=== PATIENT | female | born 1940 | race Asian ===

== ENCOUNTER 2018-08-10 14:41 | Observation (INO) | payer OTHER, MEDICARE ==
--- NOTE | 2018-08-10 14:56 | PDOC ---
History of Present Illness - General Chief Complaint: Allergic Reaction Stated Complaint: Allergic Reaction Time Seen by Provider: 08/10/18 14:50 - History of Present Illness Initial Comments: 08/10/18 14:52 Ms. Menchaca is a 77 yo female w/ pmh of [facility] who presents from outpatient center where she received colonoscopy earlier today (routine) for evaluation of allergic reaction. Per EMS patient received only propofol and lidocaine today. Patient has reportedly had both before without difficulty. Patient was noted to have hives upon coming out of sedation and was given 50mg benadryl and 4mg decadron x2 (total 8mg). Patient denies any difficulty breathing at this time and reports her hives/itching symptoms have decreased after getting the medication. The patient denies chest pain, shortness of breath, headache and dizziness. Denies fever, chills, nausea, vomit, diarrhea and constipation. Denies dysuria, frequency, urgency and hematuria. Past History - Past Medical History Allergies/Adverse Reactions: Allergies Allergy/AdvReac Type Severity Reaction Status Date / Time nut - unspecified Allergy Verified 08/10/18 16:11 Nuts Allergy Itch Uncoded 01/03/15 14:34 Home Medications: Ambulatory Orders Milk Thistle Fruit Extract [Milk Thistle] 140 mg PO DAILY capsule 08/28/16 Multivitamin [Daily Vitamin Formula] 1 each PO DAILY tablet 08/28/16 Glucosamine/D3/Boswellia Saundra [Osteo Bi-Flex Tablet] 1 each PO DAILY 08/10/18 Prednisone 30 mg PO DAILY #9 tablet 08/10/18 Review of Systems - Review of Systems Comments:: 08/10/18 14:56 GENERAL/CONSTITUTIONAL: No fever or chills. No weakness. HEAD, EYES, EARS, NOSE AND THROAT: No change in vision. No ear pain or discharge. No sore throat. CARDIOVASCULAR: No chest pain or shortness of breath RESPIRATORY: No cough, wheezing, or hemoptysis. GASTROINTESTINAL: No nausea, vomiting, diarrhea or constipation. GENITOURINARY: No dysuria, frequency, or change in urination. MUSCULOSKELETAL: No joint or muscle swelling or pain. No neck or back pain. SKIN: No rash NEUROLOGIC: No headache, vertigo, loss of consciousness, or change in strength/ sensation. ENDOCRINE: No increased thirst. No abnormal weight change HEMATOLOGIC/LYMPHATIC: No anemia, easy bleeding, or history of blood clots. ALLERGIC/IMMUNOLOGIC: +Hives as described. *Physical Exam - Physical Exam Comments: 08/10/18 14:56 GENERAL: Awake, alert, and fully oriented, in no acute distress HEAD: No signs of trauma, normocephalic, atraumatic EYES: PERRLA, EOMI, sclera anicteric, conjunctiva clear ENT: Auricles normal inspection, hearing grossly normal, nares patent, oropharynx clear without exudates. Moist mucosa NECK: Normal ROM, supple, no lymphadenopathy, JVD, or masses LUNGS: No distress, speaks full sentences, clear to auscultation bilaterally HEART: Regular rate and rhythm, normal S1 and S2, no murmurs, rubs or gallops, peripheral pulses normal and equal bilaterally. ABDOMEN: Soft, nontender, normoactive bowel sounds. No guarding, no rebound. No masses EXTREMITIES: Normal inspection, Normal range of motion, no edema. No clubbing or cyanosis. NEUROLOGICAL: Cranial nerves II through XII grossly intact. Normal speech, normal gait, no focal sensorimotor deficits SKIN: +Patient noted to have skin changes c/w hives diffusely over arms, trunk, and face. Medical Decision Making - Medical Decision Making 08/10/18 15:13 Ms. Menchaca is a 77 yo female w/ pmh as described who presents for evaluation of allergic reaction. Patient has previously received steroids and benadryl; will give H2 suze for further symptomatic relief and observe for changes. 08/10/18 18:36 Patient tolerating PO w/out difficulty with significant reduction in allergic symptoms. Hives markedly decreased and patient lungs clear w/ no wheezing or other symptoms. Prednisone for 3 days sent to patient's pharmacy. 08/10/18 18:43 Discussed patient with performing GI doctor who requested overnight observation. Inpatient team contacted. 08/10/18 18:49 Inpatient team requested laboratory evaluation with EKG and CXR. Orders placed. Inpatient team will be re-consulted following further evaluation. Patient signed out to Dr. Barth for further care. *DC/Admit/Observation/Transfer Diagnosis at time of Disposition: Allergic reaction Qualifiers: Encounter type: initial encounter Qualified Code(s): T78.40XA - Allergy, unspecified, initial encounter - Discharge Dispostion Decision to Admit order: Yes - Prescriptions Prescriptions: Prednisone 30 mg PO DAILY #9 tablet - Referrals Referrals: Lynne Chowdary MD [Staff Physician] - - Patient Instructions - Post Discharge Activity
[2018-08-10 14:58] VITALS: BMI 26.2
[2018-08-10] MEDS ORDERED: FAMOTIDINE 20 MG/50 ML IVPB 20 MG/50 ML MG IVPB ONE (15:03)
[2018-08-10] MEDS ORDERED: RANITIDINE HCL 150 MG/10 ML UNIT-DOSE PO ONE (15:03)
[2018-08-10] MEDS ORDERED: RANITIDINE HCL 150 MG TABLET (FP) ONE (15:32)
--- NOTE | 2018-08-10 15:32 | PDOC ---
Documentation entered by Praveena Mcduffie SCRIBE, acting as scribe for Carter Toro MD. Carter Toro MD: This documentation has been prepared by the scribe, Praveena Mcduffie SCRIBE, under my direction and personally reviewed by me in its entirety. I confirm that the documentation accurately reflects all work, treatment, procedures, and medical decision making performed by me. Attending Attestation - Resident Resident Name: SachingaurangGarrett - ED Attending Attestation I have performed the following: I have examined & evaluated the patient, The case was reviewed & discussed with the resident, I agree w/resident's findings & plan, Exceptions are as noted - HPI HPI: 08/10/18 15:55 The patient is a 77-year-old female, with a past medical history of pre-DM, who presents to the ED s/p acute allergic reaction after receiving propofol during a routine colonoscopy. Patient developed diffuse hives and received Benadryl and Decadron prior to arrival to the ED. Denies any shortness of breath or throat swelling. - Physicial Exam PE: 08/10/18 15:29 Patient is awake and alert, well-nourished, in no distress Normocephalic and atraumatic PERRLA, EOMI Uvula is midline and is nonedematous; No stridor mmm cta rrr + Extensive blanching well-demarcated, elevated rash to face, neck, chest, back , abdomen pelvis, upper and lower extremities consistent with urticaria - Medical Decision Making 08/10/18 15:31 Patient is a 77-year-old female who presents to the ER with signs and symptoms of an acute ALLERGIC reaction, likely due to administration of propofol. Patient received Benadryl and Decadron prior to arrival. In the ER, patient displays extensive urticaria but no evidence of airway compromise or respiratory symptoms. We'll continue to observe. Will consider epinephrine if angioedema or stridor develop. We will administer H2 blockers. Will observe.
[2018-08-10] MEDS ORDERED: methylPREDNISolone NA SUCC 40 MG/1 ML VIAL IVPB ONE (18:29)
--- NOTE | 2018-08-10 18:35 | PN ---
Progress Note (short form) - Note Progress Note: patient sent from endoscopy center after developing generalized rash contiue to have itching, rash persistent PE no SOB, no perorbital edema, no throat congestion Lungs clear Abd: normal A> drug allergy R> solumedrol 69mg 1 dose Benadryl observe for 24 hours, patient leaves by herself
[2018-08-10] MEDS ORDERED: methylPREDNISolone NA SUCC 40 MG/1 ML VIAL ONE (18:36)
--- NOTE | 2018-08-10 20:11 | PN ---
Teaching Attending Note Name of Resident: Ania Herrera ATTENDING PHYSICIAN STATEMENT I saw and evaluated the patient. I reviewed the resident's note and discussed the case with the resident. I agree with the resident's findings and plan as documented. SUBJECTIVE: Seen and examined; please refer to resident note for further historical information. Briefly, this is a 77 y/o female presenting to the ER with suspected allergic rxn to propofol after getting it administered during routine colonoscopy; Dr. Pace's note reviewed. She has gotten IV steroids and Benadryl. No s/s angioedema, protecting airway, etc. No history of intubations from anaphylaxis, etc. She has had waxing and waning dizziness for years and never had an explanation for this; the symptom flared with the allergic sx but she didn't have any syncope, rotational movement and EKG without delfino arrhythmia. No issues reported on telemetry from the ER. She sees ENT and they wanted her to get MRI per the patient; records not available. She takes traditional [place] medicine. She used to see an electronic coils supervisor for concerns of multiple allergies but tells me that she was discharged from the practice as there was nothing that could be offered. 10 sys ROS done and negative aside from HPI PMH, PSH, FH, SH reviewed Home Medications Medication Instructions Recorded Milk Thistle Fruit Extract [Milk 140 mg PO DAILY capsule 08/28/16 Thistle] Multivitamin [Daily Vitamin 1 each PO DAILY tablet 08/28/16 Formula] Glucosamine/D3/Boswellia Saundra 1 each PO DAILY 08/10/18 [Osteo Bi-Flex Tablet] Prednisone 30 mg PO DAILY #9 tablet 08/10/18 OBJECTIVE: VS, labs, imaging reviewed NAD, AAO, resting comfortably in bed NC AT EOMI PERRLA; no throat swelling, angioedema, etc. RRR s1/2 no mgr Lungs CTAB, w/ sym exp CN2-12 wnl, no fnd Normal mood, appropriate behavior CXR reviewed EKG reviewed ASSESSMENT AND PLAN: Patient presents with allergic rxn post propofol injection at colonoscopy; she is protecting her airway and not in anaphylaxis, etc. 1) Allergic rxn -Monitor airway overnight; absolutely no involvement thus far. Update allergy information (suspected propofol as agent). Based on description appears to be a type I hyperstensitivity reaction given prior exposures. Can check tryptase levels if concern for anaphylaxis but sx have mostly resolved by this juncture. -No s/s SJS, TEN, etc. -Per Up[employer]Date even if this was fullminant anaphylaxis, provided she is improving we will give another dose of methylpred IV tomorrow and then this may be stopped without a taper. We also will give another day of BID 50 benadryl and BID famotidine. 2) Chronic Dizziness -Likely flared by autonomic changes 2/2 #1 but given the chronicity and her use of TCM herbs, etc. it could be multifactoral. She has negative orthostatic VS in the ER. EKG non-revealing. Can refer for OP echo and consider 24 hour monitoring. Doesn't fit stereotyped vertigo; she does follow with ENT who she tells us wanted an MRI; would be helpful to discuss the rational with them. Full Code
[2018-08-10 20:18] LABS: HEMATOCRIT 43.4 % (32.4-45.2); HEMOGLOBIN 14.2 GM/dL (10.7-15.3); LYMPH % 8.3 % (8-40); MCH 30.3 pg (25.7-33.7); MCHC 32.8 g/dl (32.0-36.0); MEAN CELL VOLUME 92.4 fl (80-96); MEAN PLT VOLUME 7.6 fl (7.5-11.1); MONO % 1.4 % (3.8-10.2); NEUT % 90.3 % (42.8-82.8); PLATELET COUNT 223 K/MM3 (134-434); WHITE BLOOD COUNT 6.2 K/mm3 (4.0-10.0)
[2018-08-10 20:44] LABS: ALBUMIN 3.6 g/dl (3.4-5.0); BILIRUBIN,TOTAL 0.7 mg/dL (0.2-1); BLOOD UREA NITROGEN 15.1 mg/dL (7-18); CALCIUM 8.7 mg/dL (8.5-10.1); CREATININE 0.8 mg/dL (0.55-1.3); POTASSIUM 4.3 mmol/L (3.5-5.1); TOT PROT 7.3 g/dl (6.4-8.2)
--- NOTE | 2018-08-11 01:55 | HP ---
CHIEF COMPLAINT: allergic reaction PCP: Dr. Osborne HISTORY OF PRESENT ILLNESS: Pt. is a 77 y.o. F w/ PMHx. of NIDDM and HLD presents at the request of Dr. Pace after having a allergic reaction during a routine colonoscopy. Pt. after completion of colonoscopy was found to have a small erythematous pruritic "dot" that continued to spread onto all aspects of her body. Pt. endorses dizziness that started at this time especially when sitting up or standing. Pt. denies and shortness of breath, difficulty swallowing or chest pain. Pt. denies nausea or vomiting. Pt. states that she had not eaten food for the last 48 hours prior to having the colonoscopy. Pt. states that the last time she felt dizzy was on May 30, she was worked up by a print controller, heating and ventilation engineer and leather lacer without any acute findings. Pt. states that she has undergone procedures with Propofol 5 times in the past without any issues. Pt. states that this type of reaction has happened twice in the past when receiving her routine "allergy injections" by her PCP ( Pt. states that she started out with Bi weekly injection and transitioned to monthly injections for 30 years finally ceasing last year). These events 30 years ago and 5 years ago. During the event 5 years ago she endorses shortness of breath in addition to the dizziness and itchiness. Pt. endorses allergies to brazil nuts, cashews, almonds and pollen. Pt. states she drank almond milk during her trip to [facility] more than 2 days ago. Pt. states she takes her Metformin once a month instead of twice a day as prescribed. Pt. endorses using many alternative Brazilian medications including red yeast rice. ER course was notable for: (1)EKG, CXR, labs, EKG, famotidine, zantac (2) Solumedrol 60mg, telemetry (3) Recent Travel: Traveled back from [facility] on July 31 PAST MEDICAL HISTORY: Pre-DM, HLD, Dry Mouth PAST SURGICAL HISTORY: Hysterectomy (2007), [facility]Y Social History: Smoking: Denies, never Alcohol: 1/2 glass of wine per day Drugs: Denies Family History: Brother and Sister both of renal failure 2/2 DM @ ~60 Allergies nut - unspecified Allergy (Verified 08/10/18 16:11) Nuts Allergy (Uncoded 01/03/15 14:34) Itch HOME MEDICATIONS: Home Medications Medication Instructions Recorded Milk Thistle Fruit Extract [Milk 140 mg PO DAILY capsule 08/28/16 Thistle] Multivitamin [Daily Vitamin 1 each PO DAILY tablet 08/28/16 Formula] Glucosamine/D3/Boswellia Saundra 1 each PO DAILY 08/10/18 [Osteo Bi-Flex Tablet] Prednisone 30 mg PO DAILY #9 tablet 08/10/18 REVIEW OF SYSTEMS As above PHYSICAL EXAMINATION Vital Signs - 24 hr 08/10/18 08/10/18 08/10/18 14:48 18:00 19:17 Temperature 98.5 F Pulse Rate 89 Pulse Rate [ 72 Both Radial] Respiratory 18 18 Rate Blood Pressure 148/79 Blood Pressure 115/69 [Right Arm] O2 Sat by Pulse 100 97 97 Oximetry (%) 08/10/18 08/11/18 23:17 00:58 Temperature 97.4 F L Pulse Rate Pulse Rate [ 68 Both Radial] Respiratory 20 Rate Blood Pressure Blood Pressure 119/64 [Right Arm] O2 Sat by Pulse 98 97 Oximetry (%) GENERAL: Awake, alert, and fully oriented, in no acute distress. HEAD: Normal with no signs of trauma. EYES: Pupils equal, round and reactive to light, extraocular movements intact, sclera anicteric, conjunctiva clear. EARS, NOSE, THROAT: Ears normal, nares patent, oropharynx clear without exudates. Moist mucous membranes. NECK: Normal range of motion, supple without lymphadenopathy, JVD, or masses. LUNGS: Breath sounds equal, clear to auscultation bilaterally. No wheezes, and no crackles. No accessory muscle use. HEART: Regular rate and rhythm, normal S1 and S2 without murmur ABDOMEN: Soft, nontender, not distended, normoactive bowel sounds, no guarding, no rebound, no masses. MUSCULOSKELETAL: Normal range of motion at all joints. No bony deformities or tenderness. No CVA tenderness. UPPER EXTREMITIES: warm, well-perfused. No cyanosis. No clubbing. No peripheral edema. LOWER EXTREMITIES: 2+ dorsal pedal pulses, warm, well-perfused. No calf tenderness. No peripheral edema. NEUROLOGICAL: Normal speech. No nystagmus on [place] but unable to track finger PSYCHIATRIC: Cooperative. Good eye contact. Appropriate mood and affect. SKIN: Warm, dry, normal turgor, no rashes or lesions noted, normal capillary refill. Laboratory Results - last 24 hr 08/10/18 08/10/18 19:05 19:05 WBC 6.2 RBC 4.70 Hgb 14.2 Hct 43.4 MCV 92.4 MCH 30.3 MCHC 32.8 RDW 13.0 Plt Count 223 MPV 7.6 Absolute Neuts (auto) 5.6 Neutrophils % 90.3 H Lymphocytes % 8.3 Monocytes % 1.4 L Eosinophils % 0.0 Basophils % 0.0 Nucleated RBC % 0 Sodium 136 Potassium 4.3 Chloride 102 Carbon Dioxide 22 Anion Gap 11 BUN 15.1 Creatinine 0.8 Est GFR (CKD-EPI)AfAm 83.59 Est GFR (CKD-EPI)NonAf 72.12 Random Glucose 245 H Calcium 8.7 Total Bilirubin 0.7 AST 20 ALT 26 Alkaline Phosphatase 79 Total Protein 7.3 Albumin 3.6 ASSESSMENT/PLAN: Pt. is a 77 y.o. F w/ PMHx. of NIDDM and HLD presents at the request of Dr. Pace after having a allergic reaction during a routine colonoscopy. #Type 1 Hypersensitivity Reaction Given Benadryl 50mg IVP, Famotidine and Zantac Given Solumedrol 60mg c/w Solumedrol 60mg for 1 day c/w Benadryl 50mg BID for 1 more day c/w Famotidine BID for 1 more day would consider discharging with Epipen given Pt.s history of shortness of breath during one reaction and extensive work-up for allergies in the past. CXR: No acute pathology #Dizziness-intermittent and chronic Likely due to medications received in addition to volume depletion, allergic reaction and unknown traditional pashto medication ingestion f/u Head CT---> Pt. refused, states too much radiation Pt. requesting outpatient MRI referral Left atrial enlargement noted on EKG f/u Echo to rule out cardiac etiology for dizziness, may be done as outpatient No reports of adverse events on telemetry by ED Orthostatic VS negative #NIDDM Pt. non-compliant with home medications ( Metformin 500mg BID), Pt. reports using once per month. Hold oral medications BGM ACHS ISS ACHS #HLD Pt. reports using traditional Brazilian herbal medicine including red yeast rice #FEN no IVF, encorage PO intake monitor electrolytes and replete as needed Diabetic Diet #DVT Ppx. TEDs Visit type - Emergency Visit Emergency Visit: Yes ED Registration Date: 08/10/18 Care time: The patient presented to the Emergency Department on the above date and was hospitalized for further evaluation of their emergent condition. - New Patient This patient is new to me today: Yes Date on this admission: 08/10/18 - Critical Care Critical Care patient: No
[2018-08-11] MEDS ORDERED: INSULIN SLIDING SCALE (NOVOLOG) 1 VIAL SQ SCH (07:00)
[2018-08-11 09:52] VITALS: BP 127/66; PULSE 71; TEMP 97.7
[2018-08-11] MEDS ORDERED: diphenhydrAMINE HCL 25 MG CAPSULE (FP) PO SCH ×2 (10:00)
[2018-08-11] MEDS ORDERED: methylPREDNISolone NA SUCC 40 MG/1 ML VIAL IVPUSH ONE (10:00)
[2018-08-11] MEDS ORDERED: predniSONE 20 MG TABLET (UD) PO SCH (10:00)
[2018-08-11] MEDS ORDERED: FAMOTIDINE 20 MG/50 ML IVPB 20 MG/50 ML MG IVPB SCH (10:00)
[2018-08-11] MEDS ORDERED: HYDROCORTISONE SOD SUCCINATE 2 ML ONE (10:28)
[2018-08-11] MEDS ORDERED: FAMOTIDINE 20 MG/50 ML IVPB 20 MG/50 ML MG IVPB ONE (10:28)
--- NOTE | 2018-08-11 11:09 | DS ---
Physical Exam: SUBJECTIVE: Patient seen and examined at bedside. No acute events overnight. OBJECTIVE: Vital Signs Period Temp Pulse Resp BP Sys/Yu Pulse Ox Last 24 Hr 97.4 F-98.5 F 63-89 18-20 110-148/63-79 97-100 PHYSICAL EXAM GENERAL: AAOx3. NAD. Resting comfortably. HEENT: AT/NC. MMM. NECK: Trachea midline, full range of motion, supple. LUNGS: Breath sounds equal, clear to auscultation bilaterally, no wheezes, no crackles, no accessory muscle use. HEART: Regular rate and rhythm, S1, S2 without murmur, rub or gallop. ABDOMEN: Soft, nontender, nondistended, normoactive bowel sounds, no guarding, no rebound, no hepatosplenomegaly, no masses. EXTREMITIES: 2+ pulses, warm, well-perfused, no edema. NEUROLOGICAL: Cranial nerves II through XII grossly intact. Normal speech. PSYCH: Normal mood, normal affect. SKIN: Warm, dry, normal turgor, no rashes or lesions noted. LABS Laboratory Results - last 24 hr 08/10/18 08/10/18 08/11/18 19:05 19:05 06:19 WBC 6.2 RBC 4.70 Hgb 14.2 Hct 43.4 MCV 92.4 MCH 30.3 MCHC 32.8 RDW 13.0 Plt Count 223 MPV 7.6 Absolute Neuts (auto) 5.6 Neutrophils % 90.3 H Lymphocytes % 8.3 Monocytes % 1.4 L Eosinophils % 0.0 Basophils % 0.0 Nucleated RBC % 0 Sodium 136 Potassium 4.3 Chloride 102 Carbon Dioxide 22 Anion Gap 11 BUN 15.1 Creatinine 0.8 Est GFR (CKD-EPI)AfAm 83.59 Est GFR (CKD-EPI)NonAf 72.12 POC Glucometer 174 Random Glucose 245 H Calcium 8.7 Total Bilirubin 0.7 AST 20 ALT 26 Alkaline Phosphatase 79 Total Protein 7.3 Albumin 3.6 HOSPITAL COURSE: Date of Admission:08/10/18 77F w/ pmhx of NIDDM and HLD presented at the request of Dr. Pace after having an allergic reaction during a routine colonoscopy. Upon initial presentation, pt no longer appeared to have a visible rash. In the ED, pt was given IV steroids, Benadryl and IV Pepcid. Head CT was ordered, but pt refused. CXR was neg. Throughout her hospital stay, rash symptoms resolved however mild itchiness persisted. Additionally, she complained of dizziness, however, orthostatics were neg and dizziness was related to positional changes and known to be a chronic issue. She was discharged home and advised to take Benadryl for itchiness, and to follow up with her PCP and neurologist as an outpatient. Date of Discharge: 08/11/18 Minutes to complete discharge: 35 Discharge Summary Reason For Visit: Allergic Reaction Condition: Improved - Instructions Diet, Activity, Other Instructions: You were seen in the hospital after having an allergic reaction (rash and itchiness) from medications you were given during a procedure. You were given Benadryl and steroids. Your symptoms improved throughout your hospital stay. You are being discharged home. MEDICATIONS It is IMPORTANT that you take your medications as prescribed from your medical doctor. For itching, please take Benadryl 50 mg once a day as needed. Please do not take more than the daily dosage as this can be sedating and can worsen your dizziness. FOLLOW UP Please follow up with your primary care physician, Dr. Osborne, within 1 week. Please follow up with your neurologist. If you do not have a neurologist, you make an appointment to see Dr. Lee. If you experience difficulty breathing, shortness of breath, tongue swelling, redness in your mouth, difficulty swallowing, persistent chest pain or other associated symptoms, please proceed to your nearest emergency room immediately. Referrals: Clifford Lee MD [Staff Physician] - 1 Week Herbie Osborne MD [Primary Care Provider] - 1 Week Disposition: HOME - Home Medications Comprehensive Discharge Medication List: Ambulatory Orders Milk Thistle Fruit Extract [Milk Thistle] 140 mg PO DAILY capsule 08/28/16 Multivitamin [Daily Vitamin Formula] 1 each PO DAILY tablet 08/28/16 Glucosamine/D3/Boswellia Saundra [Osteo Bi-Flex Tablet] 1 each PO DAILY 08/10/18 Prednisone 30 mg PO DAILY #9 tablet 08/10/18 Ascorbic Acid [Vitamin C -] 250 mg PO DAILY 08/11/18 Calcium Carbonate [Calcium] 08/11/18 Diphenhydramine HCl [Benadryl Capsule -] 50 mg PO DAILY #5 capsule 08/11/18 Fluticasone Propionate [Flovent Diskus] 50 mcg IH 08/11/18 Magnesium 08/11/18 Multivitamin [One-Daily Multi-Vitamin] 1 each PO 08/11/18 Rosuvastatin [Crestor -] 5 mg PO HS 08/11/18 Vitamin B Complex 1 each PO 08/11/18 This patient is new to me today: Yes Date on this admission: 08/11/18 Emergency Visit: Yes ED Registration Date: 08/10/18 Care time: The patient presented to the Emergency Department on the above date and was hospitalized for further evaluation of their emergent condition. Critical Care patient: No - Discharge Referral Referred to [facility] Yes Physician Referral: Herbie Osborne MD (Int Med)
--- NOTE | 2018-08-11 12:39 | ECHO ---
Name: KYLEE BROWN Exam:Adult Echocardiogram Study Date: 08/11/2018 08:37 AM Age: 77 yrs Reason For Study: LA Enlarged Height: 59 in Weight: 130 lb BSA: 1.5 m2 MMode/2D Measurements & Calculations IVSd: 1.1 cm Ao root diam: 2.7 cm LVIDd: 3.2 cm LA dimension: 2.2 cm LVIDs: 2.1 cm LVPWd: 0.82 cm EDV(Teich): 41.6 ml LVOT diam: 2.0 cm ESV(Teich): 15.2 ml Doppler Measurements & Calculations MV E max fuentes: 58.7 cm/sec Ao V2 max: 134.4 cm/sec MV A max fuentes: 83.9 cm/sec Ao max P.2 mmHg MV E/A: 0.70 AI P1/2t: 641.0 msec MV dec time: 0.25 sec JEMMA(V,D): 3.0 cm2 AI max fuentes: 384.1 cm/sec LV V1 max P.2 mmHg AI max P.0 mmHg LV V1 max: 133.9 cm/sec AI dec slope: 175.5 cm/sec2 PA V2 max: 86.9 cm/sec Med Peak E' Fuentes: 7.5 cm/sec PA max P.0 mmHg Med E/e': 7.8 Lat Peak E' Fuentes: 7.4 cm/sec Lat E/e': 7.9 PI Vmax: 131.7 cm/sec Procedure A complete two-dimensional transthoracic echocardiogram was performed (2D, M-mode, Doppler and color flow Doppler). Left Ventricle The left ventricular size, thickness and function are normal. The left ventricular ejection fraction is normal. Ejection Fraction = 60-65%. The left ventricular wall motion is normal. Right Ventricle The right ventricle is normal in size and function. Atria Normal left and right atrial size and function. Mitral Valve There is trace mitral regurgitation. Tricuspid Valve No tricuspid regurgitation. There was insufficient TR detected to calculate RV systolic pressure. Aortic Valve The aortic valve is trileaflet. No hemodynamically significant valvular aortic stenosis. Trace aortic regurgitation. Pulmonic Valve There is no pulmonic valvular regurgitation. Great Vessels The aortic root is normal size. Pericardium/Pleura There is no pericardial effusion. Interpretation Summary The left ventricular size, thickness and function are normal The right ventricle is normal in size and function. There is trace mitral regurgitation. Trace aortic regurgitation. MD Elton Dunaway 08/11/2018 12:39 PM
--- NOTE | 2018-08-11 13:39 | EKG ---
Test Reason : Blood Pressure : / mmHG Vent. Rate : 073 BPM Atrial Rate : 073 BPM P-R Int : 162 ms QRS Dur : 080 ms QT Int : 438 ms P-R-T Axes : 074 -83 069 degrees QTc Int : 482 ms NORMAL SINUS RHYTHM POSSIBLE LEFT ATRIAL ENLARGEMENT LEFT AXIS DEVIATION ABNORMAL ECG NO PREVIOUS ECGS AVAILABLE Confirmed by STACY WHITLEY MD ([id number]) on 08/11/2018 1:38:50 PM Referred By: Confirmed By:STACY WHITLEY MD
--- NOTE | 2018-08-11 16:34 | PN ---
Teaching Attending Note Name of Resident: Nora Arias ATTENDING PHYSICIAN STATEMENT I saw and evaluated the patient. I reviewed the resident's note and discussed the case with the resident. I agree with the resident's findings and plan as documented. SUBJECTIVE:c/o dizzyness when getting out of bed too quickly. states she has some pruritis on her R hand but rash resolved last night. denies CP, SOB, fever , chills, N/V/C/D, tinnitus, not positional OBJECTIVE: Last Vital Signs Temp Pulse Resp BP Pulse Ox 97.7 F 71 18 127/66 98 08/11/18 09:52 08/11/18 09:52 08/11/18 09:52 08/11/18 09:52 08/11/18 09:52 General NAD HEENT no nystagmus no stridor CV S1 S2 RRR no murmur/rub/gallop Lungs CTA B/L no wheezing/rales/rhonchi abdomen soft NT/ND Skin no rashes appreciated Neuro CN II-XII grossly intact, no pronator drift, no dysmetria. strength and sensation grossly intact. gait intact ASSESSMENT AND PLAN: 77yo F wtih no PMH presented to the ER after developed a diffuse rash after a colonoscopy 1. Diffuse rash- likely due to propofol given during colonoscopy. no facial/ tongue swelling no difficutly controlling secretions. received medrol/pepcid/ benadryl in the ER and rash has since resolved. can cont benadryl as needed for pruritis. advised caution of sedation 2. Dizzyness- likely due autonomic dysfunction as only occurs when getting out of bed. states she notes if she gets up slowly and does some stretching that it does not occur. ambulated here without difficulty. CT offered but patient declined. wants MRI. is inconsistent with story but appears she had the symptoms for over 3 years and had multiple evaluations with ENT. recommend to f/ u with neuro but pt refuses referral at this time. she wants to find her own neurologist. recommend to ensure she stays well hydrated and get out of bed slowly. orthostatics here negative 3. d/c home
== END 2018-08-11 10:38 | disposition home or self-care (01) ==
LOC: JER 14:41 → JERBED 18:45
PROVIDERS: ADMIT Internal Medicine; ATTEND Internal Medicine
PROC: 3E0333Z Introduction of Anti-inflammatory into Peripheral Vein, Percutaneous Approach (ICD-10-PCS; principal; 2018-08-10)
PROC: 3E033GC Introduction of Other Therapeutic Substance into Peripheral Vein, Percutaneous Approach (ICD-10-PCS; 2018-08-10)
DX: T78.40XA Allergy, unspecified, initial encounter (principal); R42 Dizziness and giddiness; R21 Rash and other nonspecific skin eruption; I10 Essential (primary) hypertension; E11.9 Type 2 diabetes mellitus without complications; E78.5 Hyperlipidemia, unspecified; Z79.84 Long term (current) use of oral hypoglycemic drugs; Y84.8 Other medical procedures as the cause of abnormal reaction of the patient, or of later complication, without mention of misadventure at the time of the procedure; Y92.530 Ambulatory surgery center as the place of occurrence of the external cause
CPT/HCPCS: 36415; 71045-TC-FY; 80053; 82962; 85025; 93005; 93010; 93306-TC; 96374; 96375; 96376; 99285-25; G0378